=== PATIENT | female | born 1975 | race Caucasian/White ===

== ENCOUNTER → 2020-07-21 14:03 | Outpatient (BNVA) | payer SELFPAY | PROVIDERS: Family Provider Nurse Practitioner Family; Visit Provider Obstetrics & Gynecology | DX: N81.10 Cystocele, unspecified (principal); G89.29 Other chronic pain; R10.2 Pelvic and perineal pain; N93.8 Other specified abnormal uterine and vaginal bleeding; N39.3 Stress incontinence (female) (male) | CPT/HCPCS: 81000; 83001; 84146; 84443; 85025 ==

== ENCOUNTER → 2020-07-22 09:32 | Outpatient (BNVA) | payer SELFPAY | PROVIDERS: Family Provider Nurse Practitioner Family; Visit Provider Obstetrics & Gynecology | DX: N81.10 Cystocele, unspecified (principal); G89.29 Other chronic pain; R10.2 Pelvic and perineal pain; N93.8 Other specified abnormal uterine and vaginal bleeding; N39.3 Stress incontinence (female) (male) | CPT/HCPCS: 84702 ==

== ENCOUNTER → 2020-07-23 09:35 | Outpatient (BNVA) | payer SELFPAY | PROVIDERS: Family Provider Nurse Practitioner Family; Visit Provider Obstetrics & Gynecology | DX: N93.9 Abnormal uterine and vaginal bleeding, unspecified (principal); R10.2 Pelvic and perineal pain | CPT/HCPCS: 76830 ==

== ENCOUNTER → 2020-09-03 13:36 | Outpatient (BNVA) | payer SELFPAY | PROVIDERS: Family Provider Nurse Practitioner Family; PCP Nurse Practitioner Family; Visit Provider Obstetrics & Gynecology | DX: N93.9 Abnormal uterine and vaginal bleeding, unspecified (principal) | CPT/HCPCS: 88305 ==

== ENCOUNTER → 2020-09-15 11:40 | Outpatient (BNVA) | payer SELFPAY | PROVIDERS: Family Provider Nurse Practitioner Family; PCP Nurse Practitioner Family; Visit Provider Obstetrics & Gynecology | DX: N93.9 Abnormal uterine and vaginal bleeding, unspecified (principal); R10.2 Pelvic and perineal pain; G89.29 Other chronic pain; N39.3 Stress incontinence (female) (male) | CPT/HCPCS: 83001; 84443 ==

== ENCOUNTER → 2020-10-15 10:26 | Outpatient (BNVA) | payer OTHER, SELFPAY | PROVIDERS: Family Provider Nurse Practitioner Family; PCP Nurse Practitioner Family; Visit Provider Obstetrics & Gynecology | DX: Z20.822 Contact with and (suspected) exposure to COVID-19 (principal); Z11.52 Encounter for screening for COVID-19; N39.3 Stress incontinence (female) (male) | CPT/HCPCS: 87635 ==

== ENCOUNTER 2020-10-21 10:57 | Observation (INO) | payer SELFPAY ==
[2020-10-19 11:36] VITALS: BMI 28.3
[2020-10-19 11:51] LABS: OR HCG Qualitative Urine Negative (Negative)
[2020-10-19 12:03] LABS: Add Urine Microscopic? YES; Bilirubin Urine Neg (Negative); Blood Urine 2+ (Negative); Glucose Urine UA Norm (Normal); Ketones Urine Negative (Negative); Leukocyte Esterase Urine Trace (Negative); Nitrate Urine Negative (Negative); Protein Urine Neg (Negative); Urine Appearance Clear (CLEAR); Urine Color Yellow (Yellow); Urobilinogen Urine Norm (Negative); pH Urine 6 (5-7)
[2020-10-19 12:06] LABS: Basophils # 0.2 10^3/uL (0.0-0.1); Basophils % 1.2 %; Eosinophils # 0.5 10^3/uL (0.0-0.8); Eosinophils % 3.7 %; Hematocrit 39.2 % (37.0-47.0); Hemoglobin 12.9 g/dL (11.5-15.3); Lymphocytes # 2.4 10^3/uL (0.8-4.8); Lymphocytes % 19.6 %; Mean Corpuscular HGB Conc 32.9 g/dL (30.0-36.0); Mean Corpuscular Hemoglobin 31.1 pg (28.0-34.0); Mean Corpuscular Volume 94.5 fL (81-99); Mean Platelet Volume 9.6 fL (7.4-10.4); Monocytes # 0.6 10^3/uL (0.2-0.9); Neutrophils # 8.49 10^3/uL (1.8-7.7); Neutrophils % 70.3 %; Nucleated Red Blood Cells % 0 %; Platelet Count 355 10^3/cmm (130-400); Red Blood Count 4.15 10^6/uL (4.1-5.3); Red Cell Distribution Width 13.9 % (12.1-15.1); White Blood Count 12.1 10^3/uL (4.0-10.0)
--- NOTE | 2020-10-19 12:22 | P.ANESASSM_ITS ---
Pre-Anesthetic Assessment Pre-Anesthetic Assessment: Height/Weight: Height 1.63 m Weight 74.843 kg Preop Diagnosis: Abnormal uterine bleeding, chronic pelvic pain, stress urinary incontinence Proposed Procedure: Operation Date: 10/21/20 09:25 Proposed Procedures s Hysteroscopy w/ Ablation 88694 N93.8 73575 N39.3(Not Applicable) - Edinson Alfaro MD p Midurethral single incision sling 28944 n39.3(Not Applicable) - Edinson Alfaro MD Was Beta Laurie taken within 24 hours: N/A Was Clonidine taken within 24 hours: N/A Social: Social History: Tobacco and No alcohol Exam: Pre-Anes Outpt Exam: alert, oriented x 3 and regular rate & rhythm Airway: Submandibular: WNL Cervical ROM: WNL MP: 2 Additional comments: Poor dentition, tongue ring, edentulous on upper arch Pulmonary: Pulmonary: COPD Anesthetic Plan: ASA status: 3 Anesthesia: General Risk of > 500 ml blood loss (7ml/kg in children): No PFSH Anesthesia PFSH: Family History Grandmother Diabetes maternal Father Diabetes Stroke Pancreatic cancer late 60's Daughter Diabetes Denies family history of Colon cancer Ovarian cancer Clotting disorder Heart disease Hyperlipidemia Breast cancer Anesthesia complication Bleeding disorder Hypertension Uterine cancer Thyroid condition Social History (Updated 10/19/20 @ 09:06 by Radha Burciaga RN) Smoking and tobacco status: current every day smoker cigarettes Packs smoked per day: 1 and e-cigarettes E-Cigarette Details: vaporizer device and with nicotine E-cig/vape details: started using on 09/15/2020 Alcohol intake: never Substance/Drug Use: never Female Reproductive History: Date of last menstrual period: 10/19/20 Data Anesthesia CBC & Chem 7: 10/19/20 11:47 10/19/20 11:47 Other Labs: Laboratory Results - last 48 hr 10/19/20 10/19/20 10/19/20 11:30 11:30 11:47 WBC 12.1 H RBC 4.15 Hgb 12.9 Hct 39.2 MCV 94.5 MCH 31.1 MCHC 32.9 RDW 13.9 Plt Count 355 MPV 9.6 Neut % (Auto) 70.3 Lymph % (Auto) 19.6 [place] % (Auto) 5.0 Eos % (Auto) 3.7 Baso % (Auto) 1.2 Neut # (Auto) 8.49 H Lymph # (Auto) 2.4 [place] # (Auto) 0.6 Eos # (Auto) 0.5 Baso # (Auto) 0.2 H Nucleated RBC % (auto) 0 Nucleated RBCs # 0.0 Urine Color Yellow Urine Appearance Clear Urine pH 6 Ur Specific [place] 1.010 Urine Protein Neg Urine Glucose (UA) Norm Urine Ketones Negative Urine Blood 2+ H Urine Nitrate Negative Urine Bilirubin Neg Urine Urobilinogen Norm Ur Leukocyte Esterase Trace H Amorphous Sediment Not Reportable Urine HCG, Qual Negative Cardiac Studies: No Data to Display
[2020-10-19 12:25] LABS: Alanine Aminotransferase 9 U/L (0-33); Albumin Level 4.2 g/dL (3.5-5.2); Alkaline Phosphatase 68 IU/L (35-105); Anion Gap 13.4 (5-19); Aspartate Amino Transferase 14 U/L (0-32); Blood Urea Nitrogen 8 mg/dL (6-20); Calcium 8.9 mg/dL (8.5-10.5); Carbon Dioxide 26 mmol/L (22-29); Chloride 104 mmol/L (98-107); Globulin 2.7 g/dL (1.3-4.6); Glomerular Filtration Rate 107.6 mL/min (90-130); Glucose 130 mg/dL (65-115); Osmolality Calculated 288 mOsm/kg (285-295); Potassium 4.4 mmol/L (3.5-5.1); Sodium 139 mmol/L (136-145); Total Bilirubin 0.2 mg/dL (0.15-1.2); Total Protein 6.9 g/dL (6.6-8.7)
[2020-10-19 12:31] LABS: Add Urine Culture? No; Bacteria Urine 1+ /hpf; RBC Urine 0-4 /hpf (0-2); WBC Urine 0-4 /hpf (0-5)
[2020-10-21] VITALS (18 sets, daily range): BP systolic 107–130; BP diastolic 65–89; PULSE 68–89; RESP 12–18; TEMP 36.3–36.4; O2SAT 93–98
--- NOTE | 2020-10-21 09:04 | ANES.PAUD2 ---
Pre-Anesthetic Update Pre-Anesthetic Assessment: Date of Surgery/Procedure: 10/21/20 Preop Diagnosis: Abnormal uterine bleeding, chronic pelvic pain, stress urinary incontinence Proposed Procedure: Operation Date: 10/21/20 09:25 Proposed Procedures s Hysteroscopy w/ Ablation 91657 N93.8 30449 N39.3(Not Applicable) - Edinson Alfaro MD p Midurethral single incision sling 61905 n39.3(Not Applicable) - Edinson Alfaro MD Any changes to Pre-Anesthetic Assessment?: No Last Intake: Intake Last Liquid Date 10/20/20 Last Solid Date 10/20/20 Labs Last 48hrs: Laboratory Results - last 48 hr 10/19/20 10/19/20 10/19/20 11:30 11:30 11:47 WBC 12.1 H RBC 4.15 Hgb 12.9 Hct 39.2 MCV 94.5 MCH 31.1 MCHC 32.9 RDW 13.9 Plt Count 355 MPV 9.6 Neut % (Auto) 70.3 Lymph % (Auto) 19.6 [place] % (Auto) 5.0 Eos % (Auto) 3.7 Baso % (Auto) 1.2 Neut # (Auto) 8.49 H Lymph # (Auto) 2.4 [place] # (Auto) 0.6 Eos # (Auto) 0.5 Baso # (Auto) 0.2 H Nucleated RBC % (a uto) 0 Nucleated RBCs # 0.0 Sodium Potassium Chloride Carbon Dioxide Anion Gap BUN Creatinine GFR Calculation Glucose Calculated Osmolal ity Calcium Total Bilirubin AST ALT Alkaline Phosphata se Total Protein Albumin Globulin Urine Color Yellow Urine Appearance Clear Urine pH 6 Ur Specific Gravit y 1.010 Urine Protein Neg Urine Glucose (UA) Norm Urine Ketones Negative Urine Blood 2+ H Urine Nitrate Negative Urine Bilirubin Neg Urine Urobilinogen Norm Ur Leukocyte Aminta ase Trace H Urine RBC 0-4 H Urine WBC 0-4 H Ur Squamous Epith Cells 5-10 H Amorphous Sediment Not Reportable Urine Bacteria 1+ H Urine HCG, Qual Negative Blood Type Rho(D) Type Antibody Screen 10/19/20 10/19/20 11:47 11:47 WBC RBC Hgb Hct MCV MCH MCHC RDW Plt Count MPV Neut % (Auto) Lymph % (Auto) [place] % (Auto) Eos % (Auto) Baso % (Auto) Neut # (Auto) Lymph # (Auto) [place] # (Auto) Eos # (Auto) Baso # (Auto) Nucleated RBC % (a uto) Nucleated RBCs # Sodium 139 Potassium 4.4 Chloride 104 Carbon Dioxide 26 Anion Gap 13.4 BUN 8 Creatinine 0.6 GFR Calculation 107.6 Glucose 130 H Calculated Osmolal ity 288 Calcium 8.9 Total Bilirubin 0.2 AST 14 ALT 9 Alkaline Phosphata se 68 Total Protein 6.9 Albumin 4.2 Globulin 2.7 Urine Color Urine Appearance Urine pH Ur Specific Gravit y Urine Protein Urine Glucose (UA) Urine Ketones Urine Blood Urine Nitrate Urine Bilirubin Urine Urobilinogen Ur Leukocyte Aminta ase Urine RBC Urine WBC Ur Squamous Epith Cells Amorphous Sediment Urine Bacteria Urine HCG, Qual Blood Type O Positive Rho(D) Type Positive / 4+ Antibody Screen Negative Vitals: Temperature 97.3 F L 10/21/20 08:08 Temperature Source Temporal Artery S can 10/21/20 08:08 Pulse Rate 89 10/21/20 08:08 Pulse Rhythm 10/21/20 08:26 Pulse Strength 3+ Normal 10/21/20 08:26 Respiratory Rate 18 10/21/20 08:08 Blood Pressure 125/81 10/21/20 08:08 Blood Pressure Iqra n 95 10/21/20 08:08 Pulse Oximetry 97 10/21/20 08:08 Oxygen Delivery Me thod 10/21/20 08:26 Exam: Pre-Anes Outpt Exam: alert, oriented x 3, clear to auscultation bilaterally and regular rate & rhythm Cardiac Studies: No Data to Display
--- NOTE | 2020-10-21 09:04 | W.PM.OPSUD ---
Surgery/Procedure H&P Update DATE OF PROCEDURE: October 21, 2020 DATE H&P PERFORMED: 10/19/20 H&P UPDATE INFORMATION: I have reviewed H&P completed within last 30 days, I have examined patient prior to procedure and No changes to prior documentation PREOP DIAGNOSIS: Abnormal uterine bleeding, chronic pelvic pain, stress urinary incontinence PLANNED PROCEDURE: Operation Date: 10/21/20 09:25 Proposed Procedures s Hysteroscopy w/ Ablation 15679 N93.8 04589 N39.3(Not Applicable) - Edinson Alfaro MD p Midurethral single incision sling 31117 n39.3(Not Applicable) - Edinson Alfaro MD
[2020-10-21] MEDS: scopolamine 1.5 Patch 1 PATCH TRANSDERMA ×2 (09:07→09:16)
[2020-10-21] MEDS: sodium chloride 0.9% 500 ML IV (09:07)
--- NOTE | 2020-10-21 10:26 | PM.OP ---
Operative Report Date of procedure: October 21, 2020 Pre-op Diagnosis: Abnormal uterine bleeding, chronic pelvic pain, stress urinary incontinence Post-op diagnosis: same Procedure Done: Hysteroscopy with NovaSure ablation. Single incision mid urethral sling Specimens removed/disposition: Endometrial curettings Surgeon: Edinson Alfaro MD Anesthesia: MAC Estimated blood loss (mL): 10 IV fluids (mL): 300 Urine output (mL): 50 Complications: None Findings: Atrophic endometrium, urethral hypermobility Condition: stable Disposition: PACU Brief History: Mrs. Rodriguez 45-year-old female with abnormal uterine bleeding and stress urinary incontinence Procedure: After informed consent, this is a 45-year-old patient who has completed childbearing; and she has a tubal ligation. The patient desired control for abnormal uterine bleeding. She declined other more conservative options such as oral contraceptive pills and Mirena intrauterine device. The patient desired an ablation. Risks of the surgery, which include risk of infection, bleeding, urine perforation; were discussed in detail with the patient. Patient was also informed that is not advised after having an ablation procedure done. Patient verbalized understanding of the risks, and informed consent was obtained. The patient was taken to the operating room where general anesthesia was administered. The patient was examined under anesthesia and found to have a normal uterus with normal adnexa. She was placed in the dorsal lithotomy position and prepped and draped in sterile fashion. A weighted speculum was placed in the vagina, and the anterior lip of cervix was grasped with the single toothed tenaculum. The uterus was then gently sounded to 9.5 cm. The length of the cervical canal was 3 cm and the canal was dilated to 8 mm with Teresita?s dialators. and the 2.7 cm hysteroscope advanced gently to the uterine fundus while visualizing the monitor. Survey of the uterine cavity showed: fundus normal proliferative endometrium; left and right ostiums visualized, anterior wall with atrophic endometrium; and posterior wall with atrophic endometrium; the endocervical canal is normal. No intrauterine lesions noted. The hysteroscope was removed. A curette was advanced gently to the uterine fundus and rotated to clear the uterus. A sharp curettage wan then performed until a gritty texture was noted. There was minimal bleeding noted. The sterile THREAT STREAMaSure? Disposable Device package was opened, connected and tested per instructions. It was found to be working properly. The device?s array is completely enclosed by the external sheath and the WIDTH dial reads approximately 0.5 cm. The appropriate cavity length settings was set 6.5 cm. Adjust and lock the cavity length setting feature on the Disposable Device to the value obtained. The Cervical Collar was fully retracted to its proximal position. Confirmed that the cervix was dilated to 8.0 mm. While maintaining a slight traction on the tenaculum to minimize the angle of the uterus. In-line with the axis of the uterus the Disposable Device was inserted transcervically into the uterine cavity and advance the device until the distal end of the sheath touched the fundus. The handles were slowly squeezed up to the point of increased resistance without locking it. The WIDTH dial read 4 cm. The Disposable Device handles were slowly squeezed together while gently moving the Disposable Device -0.5 cm to and from the fundus and rotating the handle of the Disposable Device 45? counterclockwise from the vertical plane and 45? clockwise from the vertical plane until the handles locked and confirmed the with dial read greater than 2.5 cm. The Disposable Device was gently moved using anterior, posterior and lateral movements. The Disposable Device was slightly pulled back until the WIDTH dial reading reduced by approximately 0.2-0.5 cm. While holding the tenaculum, the Disposable Device was advance to the fundus, maintaining slight forward pressure. The WIDTH dial read to the previous measurement. The Cervical Collar was slide forward until it forms a seal against the external cervical os. The value indicated on the width dial into the NovaSure? RF Controller. In Automatic Mode the Cavity Integrity Assessment (VIOLETA) procedure by stepping on the foot switch once was began. The cavity integrity assessment LED signaled the test has passed. The ablation cycle started was after the successful completion of the Cavity Integrity Assessment test. Termination of the ablation was automatic at 46 seconds, 143w. The Cervical Collar was slide it to its proximal position. The Disposable Device was unlock, holding the front ic designer custom stationary and pulling the rear handles backwards until the Closed Array indicator reads closed the Disposable Device was withdrawn from the uterine cavity. A hysteroscopy was performed post ablation to confirm therapy it was noted that endometrial cavity had been thoroughly ablated. Prior to this, a sharp curettage was performed, and endometrial curettings were also collected. The hysteroscope and the tenaculum were removed with goad hemostasis noted. Then proceeded to perform the mid urethral single incision sling. A vertical midline incision was made beneath the midurethra, nearly 1.5 cm length. Careful submucosal dissection was performed bilaterally up to the interior portion of the inferior pubic ramus. The insertion of adductor longus tendon on the patient?s pubic ramus was identified as reference land scott. Palpated the notch along the internal edge of ischiopubic ramus where the adductor longus tendon and the inferior pubic ramus meet. The Altis single incision sling (SIS) was selected. With thin porcine graft the mesh of the sling was lined anteriorly and posteriorly with the graft. Then the needle of the SIS inserted aiming at the location of this notch. One of the integrated self-fixating tips place onto the needle by sliding it over the end of the needle. The needle/sling assembly was inserted toward the location of identified reference notch making sure that the flat of the handle is perpendicular to the desired path. The needle was tracked along the posterior surface of the ischiopubic ramus until the midline scott on the mesh is approximately at the midline position under the urethra. The needle was removed and the same was repeated on the contralateral side until the appropriate sling tension under the urethra was achieved ensuring that the mesh lays flat. The needle was removed and vaginal incision was closed in a running interlocking fashion with 2-0 Vicryl. Excellent hemostasis was obtained. Sponge, lap, needle, and instrument counts were correct times three. The patient tolerated the procedure well. The patient was taken to the recovery area in stable condition.
--- NOTE | 2020-10-21 10:38 | P.PCN_ITS ---
PACU note PACU note: VSS, Good respiratory effort, report to BOOKSTORE CLERK Post-Anesthesia Exam: awake
--- NOTE | 2020-10-21 10:38 | PM.PACU ---
PACU note PACU note: VSS, Good respiratory effort, report to CERAMIC MAKER DEMONSTRATOR Post-Anesthesia Exam: awake
[2020-10-21] MEDS: HYDROmorphone 1 mg/mL INJ 1 mL IVP ×2 (12:08→19:48)
[2020-10-21] MEDS: fentaNYL 50 mcg/mL INJ 2mL 25 MCG IVP (13:41)
[2020-10-21] MEDS: acetaminophen 500 mg Tablet 1000 MG PO ×2 (13:42→19:48)
--- NOTE | 2020-10-21 14:31 | ANE.PACU2 ---
Inpatient post-anesthesia follow up: Airway intact: Yes Vital signs: Temperature 97.6 F Pulse Rate 79 Respiratory Rate 16 Blood Pressure 128/82 Pulse Oximetry 97 Oxygen Delivery Me thod Room Air Oxygen Flow Rate Fraction of Inspir ed Oxygen Hydration adequate: Yes Nausea and vomiting: No Pain level: 1 Mental status: Baseline
[2020-10-21] MEDS: acetaminophen 1,000 MG/100 ML PIGGYBACK 400 MG IV (14:34)
[2020-10-21] MEDS: nicotine 21 mg Patch 1 PATCH TRANSDERMA (14:54)
[2020-10-21] MEDS: dextrose 5%-lactated ringers 1,000 ML 125 ML IV (14:54)
[2020-10-21] MEDS: ketorolac 30 mg/mL INJ IVP ×2 (16:21→23:44)
[2020-10-21] MEDS: simethicone 80 mg Chew PO (17:41)
[2020-10-21] MEDS: docusate sodium 100 mg Capsule PO (17:41)
[2020-10-22 03:30] VITALS: RESP 16
[2020-10-22] MEDS: HYDROmorphone 1 mg/mL INJ 1 mL IVP (03:30)
[2020-10-22] MEDS: acetaminophen 500 mg Tablet 1000 MG PO (03:30)
[2020-10-22] MEDS: simethicone 80 mg Chew PO (03:35)
[2020-10-22 04:00] VITALS: BP 104/70; PULSE 70; RESP 16; TEMP 36.5
[2020-10-22] MEDS: dextrose 5%-lactated ringers 1,000 ML 125 ML IV (04:00)
[2020-10-22] MEDS: ondansetron 2 mg/ML SDV 2 mL 4 MG IVP (05:28)
[2020-10-22 05:35] LABS: Hematocrit 32.8 % (37.0-47.0); Hemoglobin 10.4 g/dL (11.5-15.3); Mean Corpuscular HGB Conc 31.7 g/dL (30.0-36.0); Mean Corpuscular Hemoglobin 31.1 pg (28.0-34.0); Mean Corpuscular Volume 98.2 fL (81-99); Mean Platelet Volume 9.7 fL (7.4-10.4); Platelet Count 241 10^3/cmm (130-400); Red Blood Count 3.34 10^6/uL (4.1-5.3); Red Cell Distribution Width 14.1 % (12.1-15.1); White Blood Count 7.7 10^3/uL (4.0-10.0)
[2020-10-22] MEDS: ketorolac 30 mg/mL INJ IVP (05:40)
[2020-10-22] MEDS: docusate sodium 100 mg Capsule PO (09:28)
[2020-10-22 09:30] VITALS: BP 106/72; PULSE 83; RESP 16; TEMP 36.8
[2020-10-22] MEDS: atorvastatin 40 mg Tablet 20 MG PO (10:01)
[2020-10-22] MEDS: nicotine 21 mg Patch 1 PATCH TRANSDERMA (10:01)
--- NOTE | 2020-10-22 10:13 | PM.OBGYDC ---
Discharge Providers IMMERSION METAL CLEANER Date of Admission: 10/21/20 10:57 Date of Discharge: 10/22/20 Attending Provider at Admission: Edinson Alfaro MD Attending Provider at Discharge: Edinson Alfaro MD Primary Care Provider: Jaz MclaughlinP-C Diagnoses at Discharge Discharge Diagnosis (1) Abnormal uterine bleeding (AUB): Status: Acute (2) Chronic pelvic pain in female: Status: Acute (3) ERIKA (stress urinary incontinence, female): Status: Acute Reason for Visit Reason for Visit: Hysteroscopy with ablation Midurethral single inci Brief History: Mrs. Hemphill 48 years old female with abnormal uterine bleeding unresponsive to medical management, chronic pelvic pain and stress urinary incontinence. Hospital Course Hospital Course Mrs. Michelle 45-year-old female admitted for planned hysteroscopy with D&C and endometrial ablation and single incision mid urethral sling. The procedures were performed without complications. Postop observation uneventful. She is afebrile and hemodynamically stable. Tolerating diet well. Ambulating without difficulty. Post void residual greater than 150 mL on 2 occasions. The patient will be discharged home with Plunkett catheter bag and will follow-up Monday at the clinic. Physical Exam Narrative: EXAM NARRATIVE: GA: Alert and oriented ?3. HEENT: WNL. Heart: Regular rate and rhythm. Lungs: Clear to auscultation bilaterally. Abdomen: Bowel sounds present, CRUSHED STONE GRADER: No bleeding. Extremities: No edema, no cyanosis, no calves pain. Urinary Catheter Management^: Plunkett: Cath Placed During This Visit: yes Urinary Catheter Date of Insertion: 10/21/20 Urinary Catheter Time of Insertion: 09:30 Discharge Data Data Completed and Pending: Pending at discharge Category Date Time Status ES surgery / GI i mages Routine Exams 10/21/20 09:26 Taken Pathology: Surgic al [PTH] Routine Pth 10/21/20 10:34 Received Labs from last 24 hours 10/22/20 05:10 WBC 7.7 RBC 3.34 L Hgb 10.4 L Hct 32.8 L MCV 98.2 MCH 31.1 MCHC 31.7 RDW 14.1 Plt Count 241 MPV 9.7 Vitals: Last Vital Signs Temp 98.3 F 10/22/20 09:30 Pulse 83 10/22/20 09:30 Resp 16 10/22/20 09:30 BP 106/72 10/22/20 09:30 Pulse Ox 98 10/21/20 19:45 Discharge Plan Discharge Patient Disposition: Home Condition: Stable Prescriptions: New hydrocodone-acetaminophen 5-325 mg tablet 1 tab PO Q4H PRN (Reason: pain) Qty: 10 RF: 0 Continued ibuprofen 800 mg tablet 800 mg PO Q8H PRN (Reason: Migraine Headache) RF: 0 acetaminophen [Tylenol Extra Strength] 500 mg tablet 1,000 mg PO Q6H PRN (Reason: Pain) RF: 0 docusate sodium [Stool Softener] 100 mg capsule 400 mg PO DAILY PRN (Reason: contipation ) RF: 0 simvastatin 40 mg PO DAILY RF: 0 Dialyvite Vitamin D3 Max 1,250 mcg (50,000 unit) tablet 1,250 mcg PO .weekly RF: 0 Discharge Orders: Discharge Order (Routine); Ordered 10/22/20 Ordered By: Edinson Alfaro Referrals: Edinson Alfaro MD [Physician] - (* Your Plunkett removal is at the clinic on Monday10/26/2020 at 10:00am * Your 2 week check up is on 11/02/2020 at 12:45pm * Your 6 week follow up is on 12/04/2020 at 2:00pm) Discharge Diet: Usual diet Discharge Activity: Increase activity as tolerated Patient Instructions: Hysteroscopy (DC), Bladder Sling Procedures (DC), OB Endometrial Ablation - [facility], OB Hysteroscopy - [facility], Opioid Safety Activity Restrictions/Additional Instructions: 1. Please call [facility] on next working day to make your post-operative appointment in 2 weeks and Plunkett catheter removal on Monday. 2. Please stay home until you come back to the clinic on first post-operative check up. 3. Please follow instructions on your medications CAREFULLY. 4. If you have abdominal incision, do not cover it unless dressing is necessary because of drainage. OK to shower, but avoid bath. Leave steri-strips until they fall off. If they are still on one week after surgery, you may remove them. 5. If you had vaginal surgery or vaginal repair, Dr. Alfaro may instruct you to take SITZ bath. 6. Yellow, blood tinged odorous vaginal discharge is usually normal after hysterectomy or vaginal surgeries. 7. No sexual intercourse, tampons, or douches until you are completely released from the post-operative care. 8. Avoid constipation by eating right and maybe using some Metamucil or Milk of Magnesia. 9. All prescription refills are given during the working hours. Please do no wait till it runs out. Call the clinic at [phone] before your medication runs out. The clinic will get in touch with your doctor to prescribe medications if necessary. 10. Please remain within 40 mile radius from our hospital because emergencies do happen now and then during the post-operative period. 11. If you have stairs at home, take one step at a time slowly and minimize the number of trips. It helps to stay in one floor for the next few days. No lifting except what you can lift by one hand until you are released from the post-operative care. 12. Driving is discouraged until you are well healed. It may be 3-4 weeks before you feel strong enough to drive. You should be able to turn and look through the rear window without pain and you should be able to push the brake pedal very hard without pain before you drive. No fast rules, but SAFETY should be your primary concern. DO NOT drive if you are on sedating medications such as narcotics. 13. Call the clinic (during working hours) to make urgent appointment or go to the Emergency room, if any of the following occurs: i. Vaginal bleeding becomes heavy, more than a period. ii. Incision becomes red and sore, or drains pus. iii. Your temperature is over 100.4 or you have chill. iv. IV site becomes red and swollen (a little ``knot?? is usually OK) v. Persistent nausea and vomiting vi. Persistent constipation or diarrhea vii. Rash or allergic reaction to medications. Discharge Attestations I[employer]ION METAL CLEANER Time Spent in Discharge Care*: greater than 30 min Coding Level of Care Code Acute Carroting Machine Offbearer for g Fwd Diagnoses Abnormal uterine bleeding (AUB) N93.9 Chronic pelvic pain in female R10.2; G89.29 ERIKA (stress urinary incontinence, female) N39.3
[2020-10-22 12:00] VITALS: BP 108/82; PULSE 68; RESP 18; TEMP 36.8
[2020-10-22 12:30] VITALS: BP 108/82; PULSE 68; RESP 18; TEMP 36.8
--- NOTE | 2020-10-23 16:20 | PC.RESP ---
Smoking Cessation information sent to patient.
== END 2020-10-22 12:20 | disposition home or self-care (01) ==
LOC: OBGYN 10:58
PROVIDERS: Admitting Provider Obstetrics & Gynecology; PCP Nurse Practitioner Family; Visit Provider Obstetrics & Gynecology
PROC: 0U598ZZ Destruction of Uterus, Via Natural or Artificial Opening Endoscopic (ICD-10-PCS; CPT 58563; principal; 2020-10-21 09:15)
PROC: (CPT 57288; 2020-10-21 09:15)
DX: N93.9 Abnormal uterine and vaginal bleeding, unspecified (principal); R10.2 Pelvic and perineal pain; G89.29 Other chronic pain; N39.3 Stress incontinence (female) (male); F17.210 Nicotine dependence, cigarettes, uncomplicated
CPT/HCPCS: 58563; 36415; 51702; 51798; 80053; 81001; 81025; 84703; 85025; 85027; 86850; 86900; 88305; 96365; C1713; G0378; J0690; J1170; J1885; J2405; J2704; J3010; J7040

== ENCOUNTER → 2021-04-09 13:36 | Outpatient (BNVA) | payer SELFPAY | PROVIDERS: PCP Nurse Practitioner Family; Visit Provider Obstetrics & Gynecology | DX: R39.9 Unspecified symptoms and signs involving the genitourinary system (principal) | CPT/HCPCS: 81000 ==

== ENCOUNTER 2023-05-18 06:34 | Outpatient (CLI) | payer MEDICAID, SELFPAY ==
--- NOTE | 2023-05-18 07:15 | MR_ITS ---
WS: [id number] MRI CERVICAL SPINE NONCONTRAST HISTORY: M54.12 - Radiculopathy, cervical region COMPARISON: None available. Technique: Multiplanar, multisequence noncontrast imaging of the cervical spine. Straightening and slight reversal of the normal cervical lordosis. Cervical reversal centered at C4-5 . Signal within the cord is normal. There is a cystic area in the RIGHT peripheral cerebellum measuring 11 x 10 mm. There is mild ectopia of the cerebellar tonsils. No Chiari malformation or herniation. C2-C3: Normal. C3-C4: Normal. C4-C5: Moderate central disc protrusion with contact on the ventral thecal sac with mild displacement . Mild central stenosis. C5-C6: Small central disc protrusion with vertebral body osteophytes. Mild central and bilateral fora duran stenosis predominantly due to osteophyte disease. C6-C7: Normal. C7-T1: Normal. Paraspinal soft tissue are normal. IMPRESSION: 1. C4-5: Moderate-sized central disc protrusion with contact on the ventral thecal sac and cervical c ord with mild displacement. Mild central stenosis. 2. C5-6: Small central disc protrusion with vertebral body osteophytes. Mild central with bilateral f oraminal stenosis predominantly due to the osteophyte disease. 3. Cystic mass in the RIGHT cerebellum. This may be from a prior lacunar infarct. No prior studies fo r comparison. Consider follow-up MRI brain with contrast. 4. Mild cerebellar ectopia.
== END 2023-05-18 06:35 | disposition home or self-care (01) ==
LOC: RAD 06:35
PROVIDERS: PCP Nurse Practitioner Family; Visit Provider Anesthesiology Pain Medicine
DX: M50.121 Cervical disc disorder at C4-C5 level with radiculopathy (principal); M48.02 Spinal stenosis, cervical region; M50.122 Cervical disc disorder at C5-C6 level with radiculopathy; M25.78 Osteophyte, vertebrae; R22.0 Localized swelling, mass and lump, head; Q04.8 Other specified congenital malformations of brain
CPT/HCPCS: 72141

== ENCOUNTER 2023-06-14 06:51 | Outpatient (CLI) | payer MEDICAID, SELFPAY ==
--- NOTE | 2023-06-14 07:08 | MR_ITS ---
WS: [id number] MRI LEFT KNEE HISTORY: INTERNAL DERANGEMENT OF LEFT KNEE COMPARISON: 12/31/2014 Anterior cruciate ligament: Intact. Posterior cruciate ligament: Intact. Medial collateral ligament: Intact. Posterior lateral corner structures: Intact. Medial menisci: Intact. Normal signal, size and shape. Lateral meniscus: Intact. Normal signal, size and shape. Extensor mechanism: Distal quadriceps tendon and patellar tendons are intact. Fluid and soft tissue: No joint effusion. Tiny Mclaughlin's cyst. Osseous and articular structures: Patellofemoral compartment: Normal. Medial compartment: Very minimal narrowing and fissuring along the surface of the cartilage. No full- thickness cartilage defects and no marrow edema. Lateral compartment: Negative. IMPRESSION: 1. No significant internal derangement. 2. Very small Mclaughlin's cyst. Similar to the prior study. 3. No meniscal tear. 4. Mild narrowing of the medial compartment with minimal fissuring of the cartilage.
== END 2023-06-14 06:52 | disposition home or self-care (01) ==
LOC: RAD 06:51
PROVIDERS: PCP Nurse Practitioner Family; Visit Provider Nurse Practitioner Family
DX: M23.92 Unspecified internal derangement of left knee (principal); M71.22 Synovial cyst of popliteal space [Baker], left knee
CPT/HCPCS: 73721